=== PATIENT | female | born 1940 | race African-American/Black ===

== ENCOUNTER 2021-11-22 15:31 | Inpatient (IN) | payer BC ==
[2021-11-22 15:52] VITALS: BMI 27.3
[2021-11-22] MEDS ORDERED: VANCOMYCIN 1 GM in D5W (PRE-DOCKED) 1,000 MG/250 ML IVPB ONE (17:54)
[2021-11-22] MEDS ORDERED: PIPERACILLIN/TAZOB 4.5 GM 4.5 GM in DEXTROSE 5%-WATER 100 ML IVPB ONE (17:55)
[2021-11-22 18:25] LABS: BASO % 0.7 % (0-2.0); EOS % 2.4 % (0-4.5); HEMATOCRIT 42.8 % (32.4-45.2); HEMOGLOBIN 13.6 GM/dL (10.7-15.3); LYMPH % 38.2 % (8-40); MCH 26.2 pg (25.7-33.7); MCHC 31.8 g/dl (32.0-36.0); MEAN CELL VOLUME 82.6 fl (80-96); MEAN PLT VOLUME 7.7 fl (7.5-11.1); MONO % 6.6 % (3.8-10.2); NEUT % 52.1 % (42.8-82.8); PLATELET COUNT 338 10^3/uL (134-434); RBC 5.17 M/mm3 (3.60-5.2); RDW 14.2 % (11.6-15.6); WHITE BLOOD COUNT 9.2 K/mm3 (4.0-10.0)
[2021-11-22 18:31] LABS: INR 1.16 (0.83-1.09); PROTHROMBIN TIME (PATIENT) 13.4 SEC (9.7-13.0)
[2021-11-22 18:34] LABS: ACTIVATED PTT 32.6 SECONDS (25.2-36.5)
[2021-11-22 18:45] LABS: BLOOD UREA NITROGEN 22.2 mg/dL (7-18); CALCIUM 9.4 mg/dL (8.5-10.1)
[2021-11-22 18:46] LABS: ALBUMIN 3.1 g/dl (3.4-5.0)
[2021-11-22 18:49] LABS: CREATININE 1.4 mg/dL (0.55-1.3)
[2021-11-22 18:50] LABS: BILIRUBIN,TOTAL 0.6 mg/dL (0.2-1)
[2021-11-22] MEDS: SODIUM CHLORIDE 1,000 ML IV SCH (23:33)
[2021-11-22 23:47] LABS: ERYTHROCYTE SEDIMENTATION RATE 60 mm/hr (0-30)
[2021-11-23] MEDS ORDERED: VANCOMYCIN HCL 1,500 MG in DEXTROSE 5%-WATER - 250 ML IVPB SCH ×2 (01:15→07:00)
[2021-11-23] MEDS ORDERED: HEPARIN NA (PORCINE) 5,000 UNITS/ML 1ML VIAL ONE ×2 (06:21→13:17)
[2021-11-23] MEDS ORDERED: MEROPENEM 1 GM VIAL (RESTRICTED TO ID) IVPB ONE ×2 (06:21→13:17)
[2021-11-23] MEDS ORDERED: ACETAMINOPHEN 500 MG TABLET (FP) ONE (06:22)
[2021-11-23] MEDS: MEROPENEM 1 GM in DEXTROSE 5%-WATER 100 ML IVPB SCH ×4 (06:44→16:19)
[2021-11-23] MEDS: ACETAMINOPHEN 500 MG TABLET (FP) PO PRN (06:45)
[2021-11-23] MEDS: HEPARIN NA (PORCINE) 5,000 UNITS/ML 1ML VIAL SQ SCH ×3 (06:45→21:14)
[2021-11-23] MEDS ORDERED: VANCOMYCIN 1,000 MG in DEXTROSE 5%-WATER - 250 ML IVPB SCH (07:00)
[2021-11-23] MEDS ORDERED: POLYETHYLENE GLYCOL (HEALTHYLAX) 3350 17 GM PACKET PO PRN (07:40)
[2021-11-23] MEDS ORDERED: ALBUTEROL SO4 HFA INHALER IH PRN (07:40)
[2021-11-23] MEDS: INSULIN SLIDING SCALE (NOVOLOG) 1 VIAL SQ SCH ×5 (07:57→23:00)
[2021-11-23 08:28] LABS: BASO % 0.8 % (0-2.0); EOS % 2.7 % (0-4.5); HEMATOCRIT 39.1 % (32.4-45.2); HEMOGLOBIN 12.3 GM/dL (10.7-15.3); LYMPH % 37.9 % (8-40); MCHC 31.5 g/dl (32.0-36.0); MEAN CELL VOLUME 82.4 fl (80-96); MEAN PLT VOLUME 7.7 fl (7.5-11.1); MONO % 7.8 % (3.8-10.2); NEUT % 50.8 % (42.8-82.8); PLATELET COUNT 311 10^3/uL (134-434); RBC 4.74 M/mm3 (3.60-5.2); RDW 14.3 % (11.6-15.6); WHITE BLOOD COUNT 8.9 K/mm3 (4.0-10.0)
[2021-11-23 08:49] LABS: CALCIUM 8.6 mg/dL (8.5-10.1)
[2021-11-23 08:50] LABS: ALBUMIN 2.7 g/dl (3.4-5.0); BLOOD UREA NITROGEN 20.7 mg/dL (7-18); MAGNESIUM 1.7 mg/dL (1.8-2.4)
[2021-11-23 08:53] LABS: CREATININE 1.1 mg/dL (0.55-1.3); PHOSPHOROUS 2.8 mg/dL (2.5-4.9)
[2021-11-23 08:54] LABS: BILIRUBIN,TOTAL 0.6 mg/dL (0.2-1); TOT PROT 5.9 g/dl (6.4-8.2)
[2021-11-23] MEDS ORDERED: GABAPENTIN 100 MG CAPSULE ONE (08:57)
[2021-11-23] MEDS ORDERED: metoPROLOL SUCCINATE 25 MG TAB.SR.24H (FP) ONE (08:57)
[2021-11-23] MEDS ORDERED: NIFEdipine E.R. 30 MG TABLET ONE (08:57)
[2021-11-23] MEDS ORDERED: ATENOLOL 25 MG TABLET (FP) ONE (08:57)
[2021-11-23] MEDS ORDERED: MAGNESIUM OXIDE 400 MG TABLET (FP) PO ONE (08:57)
[2021-11-23] MEDS: POTASSIUM CHLORIDE TABS 20 MEQ TABLET.ER (FP) PO SCH ×2 (09:06→21:13)
[2021-11-23] MEDS: NIFEdipine E.R. 30 MG TABLET PO SCH (09:06)
[2021-11-23] MEDS: GABAPENTIN 300 MG CAPSULE PO SCH ×2 (09:06→21:14)
[2021-11-23] MEDS ORDERED: metoPROLOL SUCCINATE 25 MG TAB.SR.24H (FP) PO SCH (10:00)
[2021-11-23] MEDS ORDERED: ATENOLOL 25 MG TABLET (FP) PO SCH (10:00)
[2021-11-23] MEDS ORDERED: INSULIN SLIDING SCALE (NOVOLOG) 1 VIAL SQ ONE (11:15)
[2021-11-23] MEDS: VANCOMYCIN 1 GRAM (PRE-DOCKED) 1,000 MG/250 ML BAG IVPB SCH (20:00)
[2021-11-23] MEDS: ATORVASTATIN CA 40 MG TABLET (FP) PO SCH (21:13)
[2021-11-23] MEDS: CLINDAMYCIN 900 MG PREMIX IVPB 900 MG/50 ML BAG IVPB SCH (21:14)
[2021-11-23] MEDS: INSULIN (LEVEMIR) 100 UNITS/ML UNITS SQ SCH (23:19)
[2021-11-24] MEDS: AZTREONAM 2 GM in DEXTROSE 5%-WATER 100 ML IVPB SCH ×2 (00:45→12:44)
[2021-11-24] MEDS: CLINDAMYCIN 900 MG PREMIX IVPB 900 MG/50 ML BAG IVPB SCH ×3 (02:29→17:46)
[2021-11-24] MEDS: HEPARIN NA (PORCINE) 5,000 UNITS/ML 1ML VIAL SQ SCH ×3 (06:23→22:14)
[2021-11-24] MEDS: SODIUM CHLORIDE 1,000 ML IV SCH (06:25)
[2021-11-24] MEDS: INSULIN SLIDING SCALE (NOVOLOG) 1 VIAL SQ SCH ×4 (06:25→22:11)
[2021-11-24 08:14] LABS: URINE APPEARANCE CLEAR; URINE BILIRUBIN NEGATIVE (NEGATIVE); URINE COLOR YELLOW; URINE GLUCOSE (UA) NEGATIVE (NEGATIVE); URINE KETONE NEGATIVE (NEGATIVE); URINE LEUK ESTERASE NEGATIVE (NEGATIVE); URINE NITRITE NEGATIVE (NEGATIVE); URINE PROTEIN NEGATIVE (NEGATIVE); URINE UROBILINOGEN 0.2 mg/dL (0.2-1.0)
[2021-11-24] MEDS: ACETAMINOPHEN 500 MG TABLET (FP) PO PRN (09:24)
[2021-11-24] MEDS: NIFEdipine E.R. 30 MG TABLET PO SCH (09:24)
[2021-11-24] MEDS: GABAPENTIN 300 MG CAPSULE PO SCH ×2 (09:25→22:09)
[2021-11-24 11:02] LABS: BASO % 0.5 % (0-2.0); EOS % 3.8 % (0-4.5); HEMOGLOBIN 13.2 GM/dL (10.7-15.3); MCH 25.8 pg (25.7-33.7); MCHC 30.7 g/dl (32.0-36.0); MEAN PLT VOLUME 7.7 fl (7.5-11.1); MONO % 7.1 % (3.8-10.2); NEUT % 50.6 % (42.8-82.8); PLATELET COUNT 312 10^3/uL (134-434); RBC 5.11 M/mm3 (3.60-5.2); RDW 14.2 % (11.6-15.6); WHITE BLOOD COUNT 10.8 K/mm3 (4.0-10.0)
[2021-11-24 11:15] LABS: CHLORIDE 107 mmol/L (98-107); SODIUM 143 mmol/L (136-145)
[2021-11-24 11:17] LABS: ANION GAP 34 MMOL/L (8-16); CO2 2 mmol/L (21-32); GLUCOSE,RANDOM 145 mg/dL (74-106)
[2021-11-24 11:18] LABS: ALBUMIN 2.6 g/dl (3.4-5.0); BLOOD UREA NITROGEN 19.6 mg/dL (7-18); MAGNESIUM < 0.3 mg/dL (1.8-2.4)
[2021-11-24 11:19] LABS: SGPT/ALT 13 U/L (13-61)
[2021-11-24 11:21] LABS: SGOT/AST 26 U/L (15-37)
[2021-11-24 11:22] LABS: BILIRUBIN,TOTAL 0.5 mg/dL (0.2-1); TOT PROT 6.4 g/dl (6.4-8.2)
[2021-11-24 11:23] LABS: ALK PHOS 96 U/L (45-117)
[2021-11-24] MEDS: ATENOLOL 25 MG TABLET (FP) PO SCH (12:43)
[2021-11-24 19:40] LABS: CHLORIDE 108 mmol/L (98-107); SODIUM 142 mmol/L (136-145)
[2021-11-24 19:43] LABS: ALBUMIN 2.6 g/dl (3.4-5.0); ANION GAP 12 MMOL/L (8-16); CO2 22 mmol/L (21-32); GLUCOSE,RANDOM 107 mg/dL (74-106); MAGNESIUM < 0.3 mg/dL (1.8-2.4)
[2021-11-24 19:46] LABS: CREATININE 1.2 mg/dL (0.55-1.3); SGOT/AST 53 U/L (15-37); SGPT/ALT 15 U/L (13-61)
[2021-11-24 19:47] LABS: BILIRUBIN,TOTAL 0.7 mg/dL (0.2-1)
[2021-11-24 19:48] LABS: TOT PROT 6.6 g/dl (6.4-8.2)
[2021-11-24 19:49] LABS: ALK PHOS 109 U/L (45-117)
[2021-11-24] MEDS: VANCOMYCIN 1 GRAM (PRE-DOCKED) 1,000 MG/250 ML BAG IVPB SCH ×2 (19:52→20:02)
[2021-11-24 19:55] LABS: BLOOD UREA NITROGEN 11.2 mg/dL (7-18)
[2021-11-24] MEDS: ATORVASTATIN CA 40 MG TABLET (FP) PO SCH (22:09)
[2021-11-24] MEDS: INSULIN (LEVEMIR) 100 UNITS/ML UNITS SQ SCH (22:09)
[2021-11-25] MEDS: AZTREONAM 2 GM in DEXTROSE 5%-WATER 100 ML IVPB SCH ×2 (00:54→17:46)
[2021-11-25] MEDS: CLINDAMYCIN 900 MG PREMIX IVPB 900 MG/50 ML BAG IVPB SCH ×3 (02:00→17:18)
[2021-11-25] MEDS: HEPARIN NA (PORCINE) 5,000 UNITS/ML 1ML VIAL SQ SCH ×3 (06:48→21:25)
[2021-11-25] MEDS: INSULIN SLIDING SCALE (NOVOLOG) 1 VIAL SQ SCH ×4 (06:49→21:28)
[2021-11-25 07:53] LABS: BASO % 0.6 % (0-2.0); HEMOGLOBIN 11.7 GM/dL (10.7-15.3); LYMPH % 47.9 % (8-40); MCH 26.6 pg (25.7-33.7); MCHC 32.5 g/dl (32.0-36.0); MEAN CELL VOLUME 82.1 fl (80-96); MEAN PLT VOLUME 7.6 fl (7.5-11.1); MONO % 6.5 % (3.8-10.2); PLATELET COUNT 306 10^3/uL (134-434); RBC 4.38 M/mm3 (3.60-5.2); RDW 14.3 % (11.6-15.6)
[2021-11-25 08:11] LABS: INR 1.17 (0.83-1.09); PROTHROMBIN TIME (PATIENT) 13.5 SEC (9.7-13.0)
[2021-11-25 08:16] LABS: ALBUMIN 2.1 g/dl (3.4-5.0); BLOOD UREA NITROGEN 18.2 mg/dL (7-18); CALCIUM 7.7 mg/dL (8.5-10.1); MAGNESIUM 1.4 mg/dL (1.8-2.4)
[2021-11-25 08:20] LABS: BILIRUBIN,TOTAL 0.4 mg/dL (0.2-1); TOT PROT 5.3 g/dl (6.4-8.2)
[2021-11-25] MEDS: VANCOMYCIN 1 GRAM (PRE-DOCKED) 1,000 MG/250 ML BAG IVPB SCH ×2 (09:39→21:00)
[2021-11-25] MEDS: GABAPENTIN 300 MG CAPSULE PO SCH ×2 (09:40→21:13)
[2021-11-25] MEDS: NIFEdipine E.R. 30 MG TABLET PO SCH (09:42)
[2021-11-25] MEDS: ATENOLOL 25 MG TABLET (FP) PO SCH (09:43)
[2021-11-25] MEDS ORDERED: HEPARIN NA (PORCINE) 5,000 UNITS/ML 1ML VIAL ONE ×2 (10:17→10:24)
[2021-11-25] MEDS ORDERED: LIDOCAINE HCL 1%, 10 MG/ML (20ML VIAL) ONE (10:17)
[2021-11-25] MEDS ORDERED: PROPOFOL 20 ML ONE (10:23)
[2021-11-25] MEDS ORDERED: MIDAZOLAM HCL 2 MG/2 ML SINGLE DOSE VIAL ONE (10:23)
[2021-11-25] MEDS ORDERED: LIDOCAINE HCL 1%, 10 MG/ML (20ML VIAL) NR ONE ×2 (10:59→11:35)
[2021-11-25] MEDS ORDERED: IOVERSOL 320 MG/ML ML IV ONE ×2 (11:00→11:45)
[2021-11-25] MEDS ORDERED: HEPARIN NA (PORCINE) 5,000 UNITS/ML 1ML VIAL SQ ONE ×2 (11:01→11:45)
[2021-11-25] MEDS ORDERED: POLYETHYLENE GLYCOL (HEALTHYLAX) 3350 17 GM PACKET PO PRN (12:59)
[2021-11-25] MEDS ORDERED: ALBUTEROL SO4 HFA INHALER IH PRN (12:59)
[2021-11-25] MEDS ORDERED: CLOPIDOGREL BISULFATE 75 MG TABLET (FP) ONE (13:21)
[2021-11-25] MEDS ORDERED: CLOPIDOGREL BISULFATE 75 MG TABLET (FP) PO ONE (13:25)
[2021-11-25] MEDS ORDERED: AZTREONAM 2 GM VIAL (RESTRICTED TO ID) IVPB ONE (13:50)
[2021-11-25] MEDS ORDERED: ONDANSETRON 4 MG/2 ML VIAL IVPUSH PRN (14:14)
[2021-11-25] MEDS: CLOPIDOGREL BISULFATE 75 MG TABLET (FP) PO SCH (17:17)
[2021-11-25] MEDS: SODIUM CHLORIDE 1,000 ML IV SCH ×2 (17:17→17:19)
[2021-11-25] MEDS ORDERED: POTASSIUM CHLORIDE TABS 20 MEQ TABLET.ER (FP) PO ONE ×2 (18:37→21:15)
[2021-11-25] MEDS ORDERED: MAGNESIUM OXIDE 400 MG TABLET (FP) PO ONE ×3 (18:38→21:30)
[2021-11-25] MEDS: ATORVASTATIN CA 40 MG TABLET (FP) PO SCH (21:24)
[2021-11-25] MEDS: INSULIN (LEVEMIR) 100 UNITS/ML UNITS SQ SCH (21:27)
[2021-11-26] MEDS: AZTREONAM 2 GM in DEXTROSE 5%-WATER 100 ML IVPB SCH ×2 (00:56→12:17)
[2021-11-26] MEDS: CLINDAMYCIN 900 MG PREMIX IVPB 900 MG/50 ML BAG IVPB SCH ×3 (02:39→17:24)
[2021-11-26] MEDS: HEPARIN NA (PORCINE) 5,000 UNITS/ML 1ML VIAL SQ SCH ×3 (05:21→22:42)
[2021-11-26] MEDS: INSULIN SLIDING SCALE (NOVOLOG) 1 VIAL SQ SCH ×4 (06:03→22:43)
[2021-11-26] MEDS: VANCOMYCIN 1 GRAM (PRE-DOCKED) 1,000 MG/250 ML BAG IVPB SCH ×2 (08:46→20:54)
[2021-11-26] MEDS: NIFEdipine E.R. 30 MG TABLET PO SCH (10:42)
[2021-11-26] MEDS: GABAPENTIN 300 MG CAPSULE PO SCH ×2 (10:42→22:42)
[2021-11-26] MEDS: CLOPIDOGREL BISULFATE 75 MG TABLET (FP) PO SCH (10:42)
[2021-11-26] MEDS: ATENOLOL 25 MG TABLET (FP) PO SCH (10:42)
[2021-11-26 12:20] LABS: BASO % 0.6 % (0-2.0); EOS % 4.2 % (0-4.5); HEMATOCRIT 38.3 % (32.4-45.2); HEMOGLOBIN 12.2 GM/dL (10.7-15.3); LYMPH % 33.7 % (8-40); MCH 26.3 pg (25.7-33.7); MCHC 31.8 g/dl (32.0-36.0); MEAN CELL VOLUME 82.7 fl (80-96); MEAN PLT VOLUME 7.8 fl (7.5-11.1); MONO % 6.6 % (3.8-10.2); NEUT % 54.9 % (42.8-82.8); PLATELET COUNT 308 10^3/uL (134-434); RBC 4.63 M/mm3 (3.60-5.2); RDW 14.5 % (11.6-15.6); WHITE BLOOD COUNT 7.5 K/mm3 (4.0-10.0)
[2021-11-26 12:49] LABS: ALBUMIN 2.4 g/dl (3.4-5.0); BLOOD UREA NITROGEN 17.6 mg/dL (7-18); CALCIUM 7.9 mg/dL (8.5-10.1); MAGNESIUM 1.4 mg/dL (1.8-2.4)
[2021-11-26 12:52] LABS: BILIRUBIN,TOTAL 0.4 mg/dL (0.2-1); TOT PROT 5.8 g/dl (6.4-8.2)
[2021-11-26] MEDS: ACETAMINOPHEN 500 MG TABLET (FP) PO PRN (13:28)
[2021-11-26] MEDS: SODIUM CHLORIDE 1,000 ML IV SCH ×2 (13:36→18:13)
[2021-11-26] MEDS ORDERED: MAGNESIUM OXIDE 400 MG TABLET (FP) PO ONE (15:08)
[2021-11-26] MEDS ORDERED: MAGNESIUM SULF 50% (8.12 MEQ/2 ML-1 GM VIAL) IVPB ONE (15:08)
[2021-11-26] MEDS: ATORVASTATIN CA 40 MG TABLET (FP) PO SCH (22:42)
[2021-11-26] MEDS: INSULIN (LEVEMIR) 100 UNITS/ML UNITS SQ SCH (22:42)
[2021-11-27] MEDS: AZTREONAM 2 GM in DEXTROSE 5%-WATER 100 ML IVPB SCH ×2 (00:02→11:38)
[2021-11-27] MEDS: CLINDAMYCIN 900 MG PREMIX IVPB 900 MG/50 ML BAG IVPB SCH ×3 (01:42→17:28)
[2021-11-27] MEDS: HEPARIN NA (PORCINE) 5,000 UNITS/ML 1ML VIAL SQ SCH ×3 (06:16→21:59)
[2021-11-27] MEDS: INSULIN SLIDING SCALE (NOVOLOG) 1 VIAL SQ SCH ×4 (06:24→22:01)
[2021-11-27] MEDS: SODIUM CHLORIDE 1,000 ML IV SCH (07:23)
[2021-11-27 07:50] LABS: CALCIUM 7.7 mg/dL (8.5-10.1)
[2021-11-27 07:51] LABS: BLOOD UREA NITROGEN 20.9 mg/dL (7-18); MAGNESIUM 1.8 mg/dL (1.8-2.4)
[2021-11-27 07:55] LABS: BILIRUBIN,TOTAL 0.3 mg/dL (0.2-1); TOT PROT 5.3 g/dl (6.4-8.2)
[2021-11-27 07:58] LABS: BASO % 0.3 % (0-2.0); EOS % 4.8 % (0-4.5); HEMATOCRIT 35.1 % (32.4-45.2); HEMOGLOBIN 11.1 GM/dL (10.7-15.3); LYMPH % 34.1 % (8-40); MCH 26.2 pg (25.7-33.7); MCHC 31.7 g/dl (32.0-36.0); MEAN CELL VOLUME 82.8 fl (80-96); MEAN PLT VOLUME 7.6 fl (7.5-11.1); MONO % 7.8 % (3.8-10.2); PLATELET COUNT 255 10^3/uL (134-434); RBC 4.25 M/mm3 (3.60-5.2); RDW 14.4 % (11.6-15.6); WHITE BLOOD COUNT 7.7 K/mm3 (4.0-10.0)
[2021-11-27] MEDS: VANCOMYCIN/WATER FOR INJ (PEG) 750 MG/150 ML BAG IVPB SCH ×2 (10:04→21:59)
[2021-11-27] MEDS: ACETAMINOPHEN 500 MG TABLET (FP) PO PRN ×2 (10:05→22:54)
[2021-11-27] MEDS: ATENOLOL 25 MG TABLET (FP) PO SCH (10:05)
[2021-11-27] MEDS: NIFEdipine E.R. 30 MG TABLET PO SCH (10:05)
[2021-11-27] MEDS: GABAPENTIN 300 MG CAPSULE PO SCH ×2 (10:05→21:59)
[2021-11-27] MEDS: CLOPIDOGREL BISULFATE 75 MG TABLET (FP) PO SCH (10:06)
[2021-11-27] MEDS: VANCOMYCIN 1 GRAM (PRE-DOCKED) 1,000 MG/250 ML BAG IVPB SCH (10:08)
[2021-11-27] MEDS: metroNIDAZOLE 250 MG TABLET PO SCH (21:59)
[2021-11-27] MEDS: ATORVASTATIN CA 40 MG TABLET (FP) PO SCH (21:59)
[2021-11-27] MEDS: INSULIN (LEVEMIR) 100 UNITS/ML UNITS SQ SCH (22:00)
[2021-11-28] MEDS: AZTREONAM 2 GM in DEXTROSE 5%-WATER 100 ML IVPB SCH ×2 (00:18→11:03)
[2021-11-28] MEDS: HEPARIN NA (PORCINE) 5,000 UNITS/ML 1ML VIAL SQ SCH ×3 (06:14→21:10)
[2021-11-28] MEDS: metroNIDAZOLE 250 MG TABLET PO SCH ×3 (06:15→21:10)
[2021-11-28] MEDS: INSULIN SLIDING SCALE (NOVOLOG) 1 VIAL SQ SCH ×4 (06:18→21:28)
[2021-11-28 09:10] LABS: HEMATOCRIT 33.8 % (32.4-45.2); MCH 26.6 pg (25.7-33.7); MCHC 32.5 g/dl (32.0-36.0); MEAN CELL VOLUME 81.9 fl (80-96); MEAN PLT VOLUME 7.5 fl (7.5-11.1); PLATELET COUNT 244 10^3/uL (134-434); RBC 4.13 M/mm3 (3.60-5.2); RDW 14.7 % (11.6-15.6)
[2021-11-28 09:30] LABS: BLOOD UREA NITROGEN 24.1 mg/dL (7-18); CALCIUM 7.7 mg/dL (8.5-10.1)
[2021-11-28 09:32] LABS: ALBUMIN 1.9 g/dl (3.4-5.0); MAGNESIUM 1.9 mg/dL (1.8-2.4)
[2021-11-28 09:34] LABS: CREATININE 1.2 mg/dL (0.55-1.3)
[2021-11-28 09:35] LABS: BILIRUBIN,TOTAL 0.3 mg/dL (0.2-1); TOT PROT 5.1 g/dl (6.4-8.2)
[2021-11-28] MEDS: NIFEdipine E.R. 30 MG TABLET PO SCH (10:16)
[2021-11-28] MEDS: GABAPENTIN 300 MG CAPSULE PO SCH ×2 (10:16→21:10)
[2021-11-28] MEDS: CLOPIDOGREL BISULFATE 75 MG TABLET (FP) PO SCH (10:16)
[2021-11-28] MEDS: ATENOLOL 25 MG TABLET (FP) PO SCH (10:17)
[2021-11-28 10:25] LABS: ANISOCYTOSIS 1+; MACROCYTOSIS 0
[2021-11-28] MEDS: VANCOMYCIN/WATER FOR INJ (PEG) 750 MG/150 ML BAG IVPB SCH (10:56)
[2021-11-28] MEDS: ATORVASTATIN CA 40 MG TABLET (FP) PO SCH (21:10)
[2021-11-28] MEDS: INSULIN (LEVEMIR) 100 UNITS/ML UNITS SQ SCH (21:10)
[2021-11-29] MEDS: AZTREONAM 2 GM in DEXTROSE 5%-WATER 100 ML IVPB SCH ×3 (00:44→21:15)
[2021-11-29] MEDS: ACETAMINOPHEN 500 MG TABLET (FP) PO PRN ×2 (02:28→13:59)
[2021-11-29] MEDS: metroNIDAZOLE 250 MG TABLET PO SCH ×3 (05:15→21:02)
[2021-11-29] MEDS: HEPARIN NA (PORCINE) 5,000 UNITS/ML 1ML VIAL SQ SCH ×3 (05:15→21:03)
[2021-11-29] MEDS: INSULIN SLIDING SCALE (NOVOLOG) 1 VIAL SQ SCH ×4 (06:06→21:03)
[2021-11-29 09:28] LABS: HEMATOCRIT 33.8 % (32.4-45.2); HEMOGLOBIN 10.7 GM/dL (10.7-15.3); MCHC 31.6 g/dl (32.0-36.0); MEAN PLT VOLUME 7.9 fl (7.5-11.1); PLATELET COUNT 255 10^3/uL (134-434); RBC 4.12 M/mm3 (3.60-5.2); RDW 14.5 % (11.6-15.6); WHITE BLOOD COUNT 7.7 K/mm3 (4.0-10.0)
[2021-11-29] MEDS: GABAPENTIN 300 MG CAPSULE PO SCH ×2 (09:40→21:02)
[2021-11-29] MEDS: ATENOLOL 25 MG TABLET (FP) PO SCH (09:41)
[2021-11-29] MEDS: NIFEdipine E.R. 30 MG TABLET PO SCH (09:41)
[2021-11-29 09:52] LABS: CREATININE 0.9 mg/dL (0.55-1.3)
[2021-11-29 09:53] LABS: ALBUMIN 1.9 g/dl (3.4-5.0)
[2021-11-29 09:54] LABS: BILIRUBIN,TOTAL 0.2 mg/dL (0.2-1); TOT PROT 5.1 g/dl (6.4-8.2)
[2021-11-29 09:56] LABS: MAGNESIUM 1.8 mg/dL (1.8-2.4)
[2021-11-29 10:38] LABS: ANISOCYTOSIS 2+; MACROCYTOSIS 1+; OVALOCYTE 1+; PLATELET ESTIMATE NORMAL
[2021-11-29] MEDS: MINERAL OIL/PET HY-PHL TOPICAL OINTMENT 454 GM JAR TP SCH ×2 (13:58→21:04)
[2021-11-29] MEDS ORDERED: INSULIN (NOVOLOG) ASPART 100 UNITS/ML 10ML VIAL ONE (20:42)
[2021-11-29] MEDS: ATORVASTATIN CA 40 MG TABLET (FP) PO SCH (21:02)
[2021-11-29] MEDS: INSULIN (LEVEMIR) 100 UNITS/ML UNITS SQ SCH (21:03)
[2021-11-30] MEDS: HEPARIN NA (PORCINE) 5,000 UNITS/ML 1ML VIAL SQ SCH ×3 (05:54→21:23)
[2021-11-30] MEDS: metroNIDAZOLE 250 MG TABLET PO SCH ×3 (05:54→21:23)
[2021-11-30] MEDS: INSULIN SLIDING SCALE (NOVOLOG) 1 VIAL SQ SCH ×4 (06:08→21:21)
[2021-11-30] MEDS: AZTREONAM 2 GM in DEXTROSE 5%-WATER 100 ML IVPB SCH ×2 (10:19→21:13)
[2021-11-30] MEDS: CLOPIDOGREL BISULFATE 75 MG TABLET (FP) PO SCH (10:19)
[2021-11-30] MEDS: NIFEdipine E.R. 30 MG TABLET PO SCH (10:19)
[2021-11-30] MEDS: ATENOLOL 25 MG TABLET (FP) PO SCH (10:19)
[2021-11-30] MEDS: GABAPENTIN 300 MG CAPSULE PO SCH ×2 (10:19→21:23)
[2021-11-30] MEDS: ACETAMINOPHEN 500 MG TABLET (FP) PO PRN (13:58)
[2021-11-30] MEDS: MINERAL OIL/PET HY-PHL TOPICAL OINTMENT 454 GM JAR TP SCH ×2 (14:01→21:22)
[2021-11-30] MEDS: VANCOMYCIN/WATER FOR INJ (PEG) 750 MG/150 ML BAG IVPB SCH (21:13)
[2021-11-30] MEDS: INSULIN (LEVEMIR) 100 UNITS/ML UNITS SQ SCH (21:22)
[2021-11-30] MEDS: ATORVASTATIN CA 40 MG TABLET (FP) PO SCH (21:23)
[2021-12-01] MEDS: metroNIDAZOLE 250 MG TABLET PO SCH ×3 (05:42→21:42)
[2021-12-01] MEDS: HEPARIN NA (PORCINE) 5,000 UNITS/ML 1ML VIAL SQ SCH ×3 (05:42→21:43)
[2021-12-01] MEDS: INSULIN SLIDING SCALE (NOVOLOG) 1 VIAL SQ SCH ×4 (06:05→21:22)
[2021-12-01] MEDS: MINERAL OIL/PET HY-PHL TOPICAL OINTMENT 454 GM JAR TP SCH ×2 (09:10→21:20)
[2021-12-01 10:08] LABS: SARS-CoV-2 NAA Not Detected (Not Detected)
[2021-12-01] MEDS: VANCOMYCIN/WATER FOR INJ (PEG) 750 MG/150 ML BAG IVPB SCH ×2 (10:26→22:16)
[2021-12-01] MEDS: AZTREONAM 2 GM in DEXTROSE 5%-WATER 100 ML IVPB SCH ×2 (10:30→21:42)
[2021-12-01] MEDS: GABAPENTIN 300 MG CAPSULE PO SCH ×2 (10:38→21:42)
[2021-12-01] MEDS: NIFEdipine E.R. 30 MG TABLET PO SCH (10:38)
[2021-12-01] MEDS: CLOPIDOGREL BISULFATE 75 MG TABLET (FP) PO SCH (10:38)
[2021-12-01] MEDS: ATENOLOL 25 MG TABLET (FP) PO SCH (10:38)
[2021-12-01] MEDS: INSULIN (LEVEMIR) 100 UNITS/ML UNITS SQ SCH (21:23)
[2021-12-01] MEDS ORDERED: DEXTROSE 5%-WATER 100 ML IVPB ONE (21:30)
[2021-12-01] MEDS ORDERED: AZTREONAM 2 GM VIAL (RESTRICTED TO ID) ONE (21:30)
[2021-12-01] MEDS: ATORVASTATIN CA 40 MG TABLET (FP) PO SCH (21:42)
[2021-12-02] MEDS: metroNIDAZOLE 250 MG TABLET PO SCH ×3 (06:17→21:14)
[2021-12-02] MEDS: HEPARIN NA (PORCINE) 5,000 UNITS/ML 1ML VIAL SQ SCH (06:18)
[2021-12-02] MEDS: INSULIN SLIDING SCALE (NOVOLOG) 1 VIAL SQ SCH ×4 (06:43→21:14)
[2021-12-02] MEDS ORDERED: AZTREONAM 2 GM VIAL (RESTRICTED TO ID) ONE ×2 (09:56→21:07)
[2021-12-02] MEDS ORDERED: DEXTROSE 5%-WATER 100 ML IVPB ONE ×2 (09:56→21:08)
[2021-12-02] MEDS: ATENOLOL 25 MG TABLET (FP) PO SCH (10:02)
[2021-12-02] MEDS: AZTREONAM 2 GM in DEXTROSE 5%-WATER 100 ML IVPB SCH ×2 (10:02→21:14)
[2021-12-02] MEDS: GABAPENTIN 300 MG CAPSULE PO SCH ×2 (10:02→21:14)
[2021-12-02] MEDS: CLOPIDOGREL BISULFATE 75 MG TABLET (FP) PO SCH (10:02)
[2021-12-02] MEDS: NIFEdipine E.R. 30 MG TABLET PO SCH (10:02)
[2021-12-02] MEDS: MINERAL OIL/PET HY-PHL TOPICAL OINTMENT 454 GM JAR TP SCH ×2 (10:49→21:31)
[2021-12-02] MEDS: VANCOMYCIN/WATER FOR INJ (PEG) 750 MG/150 ML BAG IVPB SCH (10:50)
[2021-12-02] MEDS ORDERED: INSULIN (NOVOLOG) ASPART 100 UNITS/ML 10ML VIAL ONE (21:13)
[2021-12-02] MEDS: ATORVASTATIN CA 40 MG TABLET (FP) PO SCH (21:14)
[2021-12-02] MEDS: INSULIN (LEVEMIR) 100 UNITS/ML UNITS SQ SCH (21:16)
[2021-12-03] MEDS: metroNIDAZOLE 250 MG TABLET PO SCH ×2 (06:03→14:19)
[2021-12-03] MEDS: INSULIN SLIDING SCALE (NOVOLOG) 1 VIAL SQ SCH ×2 (06:03→11:37)
[2021-12-03] MEDS: ACETAMINOPHEN 500 MG TABLET (FP) PO PRN (07:31)
[2021-12-03] MEDS ORDERED: DEXTROSE 5%-WATER 100 ML IVPB ONE (09:31)
[2021-12-03] MEDS ORDERED: AZTREONAM 2 GM VIAL (RESTRICTED TO ID) ONE (09:31)
[2021-12-03] MEDS: ATENOLOL 25 MG TABLET (FP) PO SCH (09:35)
[2021-12-03] MEDS: GABAPENTIN 300 MG CAPSULE PO SCH (09:35)
[2021-12-03] MEDS: NIFEdipine E.R. 30 MG TABLET PO SCH (09:35)
[2021-12-03] MEDS: CLOPIDOGREL BISULFATE 75 MG TABLET (FP) PO SCH (09:35)
[2021-12-03] MEDS: AZTREONAM 2 GM in DEXTROSE 5%-WATER 100 ML IVPB SCH (09:36)
[2021-12-03] MEDS: MINERAL OIL/PET HY-PHL TOPICAL OINTMENT 454 GM JAR TP SCH (09:37)
[2021-12-03] MEDS ORDERED: VANCOMYCIN/WATER FOR INJ (PEG) 1,000 MG/200 ML BAG IVPB SCH (10:00)
[2021-12-03] MEDS ORDERED: INSULIN (NOVOLOG) ASPART 100 UNITS/ML 10ML VIAL ONE (11:25)
[2021-12-03 12:41] VITALS: BP 137/68; PULSE 62; TEMP 97.8
== END 2021-12-03 14:18 | disposition home health service (06) | DRG 271 ==
LOC: JER 15:31 → INTOOBSV 19:30 → UNDOADMOB 19:30 → JERBED 19:30 → OBSVTOIN 11-23 15:06 → J8W 11-23 15:17
PROVIDERS: ADMIT Hospitalist; ATTEND Nurse Practitioner Family
PROC: 047K3D1 Dilation of Right Femoral Artery with Intraluminal Device, using Drug-Coated Balloon, Percutaneous Approach (ICD-10-PCS; principal; 2021-11-26)
PROC: 04CK3ZZ Extirpation of Matter from Right Femoral Artery, Percutaneous Approach (ICD-10-PCS; 2021-11-26)
PROC: 047K3ZZ Dilation of Right Femoral Artery, Percutaneous Approach (ICD-10-PCS; 2021-11-26)
PROC: 04CV3ZZ Extirpation of Matter from Right Foot Artery, Percutaneous Approach (ICD-10-PCS; 2021-11-26)
PROC: B518ZZA Fluoroscopy of Superior Vena Cava, Guidance (ICD-10-PCS; 2021-11-26)
PROC: B40FYZZ Plain Radiography of Right Lower Extremity Arteries using Other Contrast (ICD-10-PCS; 2021-11-26)
PROC: B40DYZZ Plain Radiography of Aorta and Bilateral Lower Extremity Arteries using Other Contrast (ICD-10-PCS; 2021-11-26)
PROC: 02HV33Z Insertion of Infusion Device into Superior Vena Cava, Percutaneous Approach (ICD-10-PCS; 2021-11-26)
DX: E11.52 Type 2 diabetes mellitus with diabetic peripheral angiopathy with gangrene (principal); L97.518 Non-pressure chronic ulcer of other part of right foot with other specified severity; R78.81 Bacteremia; N17.9 Acute kidney failure, unspecified; I70.268 Atherosclerosis of native arteries of extremities with gangrene, other extremity; I96 Gangrene, not elsewhere classified; L98.498 Non-pressure chronic ulcer of skin of other sites with other specified severity; E11.621 Type 2 diabetes mellitus with foot ulcer; E78.5 Hyperlipidemia, unspecified; I10 Essential (primary) hypertension; J45.909 Unspecified asthma, uncomplicated; Z86.73 Personal history of transient ischemic attack (TIA), and cerebral infarction without residual deficits
CPT/HCPCS: 36415; 36569; 71046-TC-FY; 73630-TC-RT-FY; 73718-TC-RT; 76000-TC-FY; 80053; 80061; 81003; 82962; 83036; 83735; 84100; 85025; 85610; 85651; 85730; 86140; 86850; 86900; 86901; 87040; 87086; 87186; 93005; 93010; 93306-TC; 94760; 97116-GP; 97162-GP; 99285-25; C9803; G0378; G0480; J1644; U0003; U0005